=== PATIENT | male | born 1935 | race Caucasian/White ===

== ENCOUNTER 2023-07-25 01:09 | Emergency (ER) | payer OTHER, SELFPAY ==
[2023-07-25 01:13] VITALS: BP 132/101
--- NOTE | 2023-07-25 01:41 | ED.GENMED ---
History of Present Illness
<SHANNAN Pulliam - Last Filed: 07/26/23 17:59>
General
Chief Complaint: Abdominal Pain
Source: patient and spouse
Exam Limitations: none
Time Seen by Provider: 07/25/23 01:22
Travel History
Have you had any contact with someone who has COVID-19?: No
Do you have any symptoms of coronavirus? Fever > 100 degrees, chills, cough, shortness of breath, sore throat, loss of taste or smell, muscle aches, or headache?: No
History of Present Illness
History of Present Illness:
This is a 87 year old male that comes in with c/o constipation. States that he has problems with constipation and then diarrhea. States that he took 3 Imodium and he forced a little stool out today. Then he took 3 Colace today and he still hasn't
gone. States that he has some pain over the incision that was severe. States that he was concerned that he has an obstruction. states that he did not eat much today and he was nauseated and had dry heaves after taking Miralax. States that he is
also not a good water drinker. Denies any fever, chills, chest pain, SOB, diarrhea, vomiting, headache, dizziness, urinary burning.
Past History
<SHANNAN Pulliam - Last Filed: 07/26/23 17:59>
Past History
ED Past Medical History: Arrthythmia (Atrial flutter), HTN, Psychiatric (anxiety) and Other (Sciatic, Constipation, diarrhea syndrome, )
ED Past Surgical History: Bowel resection (Colon resection), Cardiac (Ablation), Orthopedic (Left hip replacement) and Tonsilectomy
Social History
Tobacco: Smoker (Cigar occasionally)
Alcohol: Daily (Wine or Rum and Coke 1 glass)
Drug: None
Personal:
Living: with family
Employment: Retired
Family History
Family History: Other
Review of Systems
<SHANNAN Pulliam - Last Filed: 07/26/23 17:59>
Review of Systems
All Other Systems: ROS reviewed and negative except as documented in HPI and ROS
Constitutional: Reports no symptoms; Denies fever or chills
EENT: Reports no symptoms
Respiratory: Reports no symptoms; Denies cough or trouble breathing
Cardiac: Reports no symptoms; Denies chest pain
ABD/GI: Reports abdominal pain and nausea; Denies vomiting (Dry heaves) or diarrhea
: Reports no symptoms; Denies dysuria, frequency or urgency
Musculoskeletal: Reports no symptoms
Skin: Reports no symptoms
Neurological: Reports no symptoms; Denies dizzy or headache
Psychiatric: Reports no symptoms
Phy Exam
<SHANNAN Pulliam - Last Filed: 07/26/23 17:59>
General Physical Exam
General Presentation: well appearing and no apparent distress
General age: appears stated age
General Skin: warm and dry
General Habitus: elderly
General Mental: alert
General Hydration: dry mucous membranes
ENT Exam
ENT Exam: TM's normal, pharynx normal and neck supple
Eye Exam
Eye Exam: EOMI
Cardiovascular Exam
Cardiovascular Exam: regular rate/rhythm, no edema, no murmur and normal peripheral pulses
Pulmonary Exam
Pulmonary Exam: lungs clear, no respiratory distress, no rales, chest non tender, no crackles, no rhonchi, no wheezing and no cough
Gastrointestinal Exam
Gastrointestinal Exam: normal bowel sounds, non tender, soft, no organomegaly, no pulsatile mass and non distended
Musculoskeletal Exam
Musculoskeletal Exam: full ROM and no edema
Skin Exam
Skin Exam: normal color, warm/dry, no rash and no petechia
Psychiatric Exam
Psychiatric Exam: normal mood/affect
Course
<SHANNAN Pulliam - Last Filed: 07/26/23 17:59>
Orders/Labs/Results
Orders:
Orders
07/25/23 01:39
0.9% Sodium Chloride 1000 ml [Nss] 1,000 ml IV BOLUS
07/25/23 01:46
Iohexol [Omnipaque] See Protocol PO NOW STA
07/25/23 01:47
CT Abd/pel W Iv And Oral Contr Urgent
Comment:
Reason For Exam: Right sided pain
07/25/23 01:48
Complete Blood Count/With Diff Urgent
Comprehensive Metabolic Panel Urgent
Lipase Urgent
07/25/23 02:15
Urinalysis Reflex To Culture Urgent
Date Specimen was Collected: 07/25/23
Time Specimen was Collected: 02:14
Urine Microscopic Reflex Cult Urgent
Urine Culture Urgent
ASIF Source: U
Specimen Description:
Date Specimen was Collected: 07/25/23
Time Specimen was Collected: 02:14
Abnormal Lab Results
07/25/23 07/25/23
01:48 02:15
WBC 12.8 H 10^3/uL
(4.8-10.8)
RBC 4.52 L 10^6/uL
(4.70-6.10)
Hct 38.6 L %
(39.0-52.0)
RDW 14.9 H %
(11.5-14.5)
Absolute Neuts (auto) 8.5 H 10^3/uL
(1.4-6.5)
Absolute Lymphs (auto) 3.6 H 10^3/uL
(1.2-3.4)
Sodium 132 L mmol/L
(135-145)
BUN 27 H mg/dl
(9-20)
Creatinine 1.4 H mg/dL
(0.7-1.3)
Glucose 138 H mg/dl
(70-99)
Urine Ketones Trace A
(Negative)
Ur Occult Blood Reflex 4+ A
(Negative)
Leukocyte Esterase Rfl Trace A
(Negative)
Urine RBC >100 A /HPF
(0-2)
Urine Bacteria (Reflex) Many A
(Negative)
07/25/23 01:48
07/25/23 01:48
Vital Signs
Initial and Last Documented VS:
Initial Vital Signs
Temp Pulse Resp BP Pulse Ox
97.9 F 70 20 132/101 98
07/25/23 01:13 07/25/23 01:13 07/25/23 01:13 07/25/23 01:13 07/25/23 01:13
Last Documented Vital Signs
Temp Pulse Resp BP Pulse Ox
97.9 F 70 20 144/58 97
07/25/23 01:13 07/25/23 01:13 07/25/23 01:13 07/25/23 05:00 07/25/23 05:30
<Axel Romo, DO - Last Filed: 07/25/23 05:36>
Orders/Labs/Results
Orders:
Orders
07/25/23 01:39
0.9% Sodium Chloride 1000 ml [Nss] 1,000 ml IV BOLUS
07/25/23 01:46
Iohexol [Omnipaque] See Protocol PO NOW STA
07/25/23 01:47
CT Abd/pel W Iv And Oral Contr Urgent
Comment:
Reason For Exam: Right sided pain
07/25/23 01:48
Complete Blood Count/With Diff Urgent
Comprehensive Metabolic Panel Urgent
Lipase Urgent
07/25/23 02:15
Urinalysis Reflex To Culture Urgent
Date Specimen was Collected: 07/25/23
Time Specimen was Collected: 02:14
Urine Microscopic Reflex Cult Urgent
Urine Culture Urgent
ASIF Source: U
Specimen Description:
Date Specimen was Collected: 07/25/23
Time Specimen was Collected: 02:14
Abnormal Lab Results
07/25/23 07/25/23
01:48 02:15
WBC 12.8 H 10^3/uL
(4.8-10.8)
RBC 4.52 L 10^6/uL
(4.70-6.10)
Hct 38.6 L %
(39.0-52.0)
RDW 14.9 H %
(11.5-14.5)
Absolute Neuts (auto) 8.5 H 10^3/uL
(1.4-6.5)
Absolute Lymphs (auto) 3.6 H 10^3/uL
(1.2-3.4)
Sodium 132 L mmol/L
(135-145)
BUN 27 H mg/dl
(9-20)
Creatinine 1.4 H mg/dL
(0.7-1.3)
Glucose 138 H mg/dl
(70-99)
Urine Ketones Trace A
(Negative)
Ur Occult Blood Reflex 4+ A
(Negative)
Leukocyte Esterase Rfl Trace A
(Negative)
Urine RBC >100 A /HPF
(0-2)
Urine Bacteria (Reflex) Many A
(Negative)
07/25/23 01:48
07/25/23 01:48
Vital Signs
Initial and Last Documented VS:
Initial Vital Signs
Temp Pulse Resp BP Pulse Ox
97.9 F 70 20 132/101 98
07/25/23 01:13 07/25/23 01:13 07/25/23 01:13 07/25/23 01:13 07/25/23 01:13
Last Documented Vital Signs
Temp Pulse Resp BP Pulse Ox
97.9 F 70 20 144/58 97
07/25/23 01:13 07/25/23 01:13 07/25/23 01:13 07/25/23 05:00 07/25/23 05:30
<SHANNAN Pulliam - Last Filed: 07/26/23 17:59>
MDM/Problems Addressed
Differential Diagnosis Includes:
constipation, Bowel obstruction,
MDM/Problems Addressed:
This is a 87 year old male that comes in with c/o constipation. States that he has taken 3 Imodium. Then today he was only able to move his bowels very little in the morning. Then he took 3 Colace. States that he took Miralax and had some dry
heaves. State that he had pain over his incision site and was concerned for a bowel obstruction. Patient states that he did not eat today and he is not drinking much water.
Will check labs and get CT scan. Will give IV fluids and check urine.
Chronic conditions affecting care:
Constipation/Diarrhea syndrome.
Chronic conditions affecting care: Previous abdomnial surgery
Acute Exacerbation and/or Progression of Chronic Illness: Previous abdomnial surgery
<SHANNAN Pulliam - Last Filed: 07/26/23 17:59>
*Radiology
Radiology exam reviewed: radiology read reviewed (CT- There is mild right hydronephrosis secondray to a 2mm calculus at the right ureterovesical junction. There are right renal cyst with the largest mesurng 10cm. There are severe degenerative
changes in the lumbar spine. )
*Pulse Oximetry
Patient hypoxic: no
*EKG
Interpreted by ED Provider?: NA
Rate: EKG- N/A
*Animal Services Officer Interpretation
Rate: Animal Services Officer- N/A
*Critical Care Note
Total Time (30-74mins, 75-104mins- exclusive of procedures): Not Applicable
ED Attending Note
<SHANNAN Pulliam - Last Filed: 07/26/23 17:59>
-
Portions of this chart may have been created with voice recognition software.� Occasional wrong word or��sound alike� substitutions may have occurred due to the inherent limitations of voice recognition software.
<Axel Romo DO - Last Filed: 07/25/23 05:36>
ED Attending Note
Patient seen and examined by attending physician: Yes
I performed the substantive portion of visit, reviewed & personally made and approve the management plan that is documented in note by myself or BECKY.: Yes
ED Attending Note:
CT ABDOMEN PELVIS WITH CONTRAST
COMPARISON: None
IMPRESSION:
Mild right hydronephrosis due to an obstructing 2 million m stone at the right ureterovesical junction.
Large right renal cysts measuring up to 10.1 cm.
Probable hemangioma right hepatic lobe segment 7 measuring 2.2 cm.
No evidence of diverticulitis or colitis. Appendix not visualized. No pericecal inflammatory process. No bowel obstruction. No free air.
No concerning bone finding.
07/25/2023 0529 AM: Discussed CAT scan findings with patient and . Patient stated that he does have a history of hematuria. For the last 34 years he has had hematuria. He states that this is secondary to radiation he received for colon cancer.
He has no true urinary symptoms at this time. He wishes to be discharged home. He will get a prescription for pain medication. He takes Flomax.
Discharge Plan
Departure
Patient Disposition: Home (Routine Discharge)
Date of Disposition: 07/25/23
Time of Disposition: 05:30
Patient with high blood pressure during this ER visit?: No
Condition: Good
Discharge Problem:
Kidney stone
Instructions: How to Strain Your Urine, Abdominal Pain, BLOOD PRESSURE
Prescriptions:
New
oxycodone-acetaminophen [Percocet] 5-325 mg tablet
1 tab PO Q4HPRN PRN (Reason: pain) Qty: 10 0RF
No Action
tamsulosin 0.4 MG capsule
0.4 mg PO QPM
losartan [Cozaar] 100 MG tablet
100 mg PO DAILY
potassium chloride 20 MEQ tablet extended release
20 meq PO DAILY
mirtazapine 15 MG tablet
15 mg PO HS
apixaban [Eliquis] 5 MG tablet
5 mg PO BID Qty: 30 0RF
diltiazem HCl 120 MG capsule,ext.rel 24h degradable
240 mg PO DAILY Qty: 30 0RF
diazepam 5 MG tablet
5 mg PO DAILYPRN PRN (Reason: anxiety)
Referrals:
Usman Fisher MD [Active] -
Froilan Hamilton MD [Family Provider] -
Activity Restrictions/Additional Instructions:
Continue to take your Flomax (tamsulosin) as directed
It was a pleasure meeting you and taking part in your care. We hope for your continued healing and wellness.
Please read discharge instructions in their entirety. However, they are for general education and may not describe your exact diagnosis at discharge. Information on your ER visit and medical conditions were discussed with you along with appropriate
follow up information...
If indicated, please take your medications as instructed and indicated on discharge paperwork.
Please schedule a follow up appointment as directed. Call to schedule an appointment
Please return to the emergency department with ANY change in, persisting, or worsening of symptoms. If any of your symptoms do not improve, or persist, or become more severe within 6-12 hours, please return to the emergency department for further
care.
Please return to the emergency department if you develop a headache, neck pain/stiffness, fever greater than 100.4F, chest pain, shortness of breath, persistent nausea, vomiting, slurred speech, difficulty walking, numbness/tingling, weakness, signs
of infection or any other symptoms that are worrisome to you.
If you have any questions or concerns please do not hesitate to call the Hospital at or E-mail me directly at [email or web address]
Interventions
Interventions:
*Risk Screen - Suicide Last Done: 07/25/23 01:13
*General Assessment Last Done: 07/25/23 01:13
*Neglect/Abuse Screening Last Done: 07/25/23 01:13
ED- Fall Risk Assessment Last Done: 07/25/23 01:13
*ED COVID-19 Vaccine History Last Done: 07/25/23 01:13
*Nursing Disposition Last Done: 07/25/23 06:02
CZ-Mwnulg-Pxqyyktmze Assessment Last Done: 07/25/23 02:32
Discharge Date and Time
Discharge Date/Time: 07/25/23 05:55
Print Language: KAZAKH
[2023-07-25 01:43] VITALS: BMI 23.8
[2023-07-25 01:57] LABS: % Basophils 0.2 % (0-2); % Eosinophils 0.2 % (0-6); % Immature Granulocytes 0.3 % (0-0.5); % Lymphocytes 28.3 % (20.5-51.1); % Monocytes 4.2 % (1.7-9.3); % Neutrophils 66.8 % (42.2-75.2); Absolute Lymphocytes 3.6 10^3/uL (1.2-3.4); Absolute Monocytes 0.5 10^3/uL (0.1-0.6); Absolute Neutrophils 8.5 10^3/uL (1.4-6.5); Hematocrit 38.6 % (39.0-52.0); Hemoglobin 13.9 g/dL (13.0-18.0); Mean Corpuscular Hgb 30.8 pg (27.0-31.0); Mean Corpuscular Volume 85.4 fL (80.0-94.0); Mean Platelet Volume 8.9 fL (7.4-10.4); Nucleated Red Blood Cells % 0 % (-); Platelet Count 193 10^3/uL (130-400); Red Blood Cell Count 4.52 10^6/uL (4.70-6.10); Red Cell Dist. Width 14.9 % (11.5-14.5); White Blood Cell Count 12.8 10^3/uL (4.8-10.8)
[2023-07-25] MEDS: OMNIPAQUE 50 ML PO (02:15)
[2023-07-25] MEDS: NSS 1000 IV (02:15)
[2023-07-25 02:20] VITALS: BP 154/64
[2023-07-25 02:22] LABS: ALT (SGPT) 19 U/L (0-50); AST (SGOT) 26 U/L (17-59); Albumin 4.3 g/dl (3.5-5.0); Alkaline Phosphatase 94 U/L (38-126); Blood Urea Nitrogen 27 mg/dl (9-20); Calcium 9.8 mg/dl (8.4-10.2); Carbon Dioxide 23 mmol/L (22-30); Chloride 103 mmol/L (98-107); Estimated Creatinine Clearance 36 ml/min; Glucose 138 mg/dl (70-99); Lipase 40 U/L (23-300); Potassium 4.4 mmol/L (3.5-5.1); Sodium 132 mmol/L (135-145); Total Bilirubin 0.9 mg/dl (0.2-1.3); Total Protein 7.6 g/dl (6.3-8.2); eGFR 48.65
[2023-07-25 03:00] VITALS: BP 161/61
[2023-07-25 03:25] LABS: Urine Albumin Trace (Neg - Trace); Urine Bilirubin Negative (Negative); Urine Character Slightly Cloudy (Clear); Urine Color Amber; Urine Glucose Negative (Negative); Urine Ketone Trace (Negative); Urine Leukocyte Trace (Negative); Urine Nitrite Negative (Negative); Urine Occult Blood 4+ (Negative); Urine Urobilinogen Negative (Neg - 1+)
[2023-07-25 03:47] LABS: Urine Amorphous Seen; Urine Bacteria Many (Negative); Urine Red Blood Cell >100 /HPF (0-2); Urine Squamous Cell >30 /LPF (Few)
[2023-07-25 03:49] LABS: Urine Mucus Many
[2023-07-25 04:03] VITALS: BP 166/75
[2023-07-25 05:00] VITALS: BP 144/58
== END 2023-07-25 05:55 | disposition home or self-care (01) ==
LOC: EMR 01:09
PROVIDERS: Clinical Nurse Specialist Family Health; EMERGENCY PHYSICIAN Student in an Organized Health Care Education/Training Program; FAMILY PHYSICIAN Internal Medicine Geriatric Medicine
DX: K59.00 Constipation, unspecified (principal); N13.2 Hydronephrosis with renal and ureteral calculous obstruction; R31.9 Hematuria, unspecified; M47.816 Spondylosis without myelopathy or radiculopathy, lumbar region; N28.1 Cyst of kidney, acquired; I10 Essential (primary) hypertension; I48.92 Unspecified atrial flutter; F41.9 Anxiety disorder, unspecified; F17.290 Nicotine dependence, other tobacco product, uncomplicated; Z96.642 Presence of left artificial hip joint; Z98.0 Intestinal bypass and anastomosis status; Z85.038 Personal history of other malignant neoplasm of large intestine; Z92.3 Personal history of irradiation; Z79.01 Long term (current) use of anticoagulants
CPT/HCPCS: 99285; 96360; 74177; 80053; 81003; 81015; 83690; 85025; 87086; Q9967

== ENCOUNTER 2024-02-13 03:20 | Emergency (ER) | payer OTHER, SELFPAY ==
[2024-02-13 03:21] VITALS: BP 160/80
--- NOTE | 2024-02-13 03:38 | ED.GENMED ---
History of Present Illness
<Stephanie Cade PA-C - Last Filed: 02/13/24 05:14>
General
Chief Complaint: Fever
Source: patient
Exam Limitations: none
Time Seen by Provider: 02/13/24 03:37
Nursing documentation reviewed up to this point in time: agreed with
History of Present Illness
History of Present Illness:
88-year-old male with past medical history of A-fib on diltiazem and Eliquis, hypertension presents to the Emergency Department today with concerns of on and off fevers and chills, as well as body aches for the past 2 weeks. Patient reports that
this all started 2 weeks ago after getting his COVID and flu shots. Patient states that he was checking his temperature because he got shaking chills and noticed that it was 99. Patient then took Tylenol which relieved his symptoms. Patient then
got chills again started taking his temperature daily due to to his present course of illness. Patient close primary care provider and was told to take Tylenol and stay well-hydrated. Patient states that he inserted feel congestion and having on
and off cough. Patient states that when he went to sleep last night, he woke up in the middle and noted a fever 101. Patient did take Tylenol prior to arrival to emergency department and notes that his fever resolved and he now feels better. He
denies chest pain, shortness of breath, hemoptysis, abdominal pain, nausea, vomiting, burning with urination. Denies any diarrhea or constipation.
Past History
<Stephanie Cade PA-C - Last Filed: 02/13/24 05:14>
Past History
ED Past Medical History: Arrthythmia (Atrial flutter), HTN, Psychiatric (anxiety) and Other (Sciatic, Constipation, diarrhea syndrome, )
ED Past Surgical History: Bowel resection (Colon resection), Cardiac (Ablation), Orthopedic (Left hip replacement) and Tonsilectomy
Social History
Tobacco: Smoker (Cigar occasionally)
Alcohol: Daily (Wine or Rum and Coke 1 glass)
Drug: None
Personal:
Living: with family
Employment: Retired
Family History
Family History: Other
Review of Systems
<Stephanie Cade PA-C - Last Filed: 02/13/24 05:14>
Review of Systems
All Other Systems: ROS reviewed and negative except as documented in HPI and ROS
Phy Exam
<Stephanie Cade PA-C - Last Filed: 02/13/24 05:14>
Physical Exam
Physical Exam:
General: Patient is well appearing and in no acute distress; non-toxic
Skin: Warm and dry, no rashes or lesions
Head: Normocephalic, atraumatic. No tenderness to palpation of the sinuses.
Eyes: Sclera non-icteric. EOMs intact. PERRLA.
Throat: No pharyngeal erythema, uvula midline, no post nasal drip.
Cardiac: Regular rate and rhythm, no murmurs
Pulm: Normal respiratory effort, no wheezes, rales, or rhonchi
Neuro: CN II-XII intact, no focal neurologic deficits.
Psychiatric: Appropriate mood and affect.
Course
<Stephanie Cade PA-C - Last Filed: 02/13/24 05:14>
Orders/Labs/Results
Orders:
Orders
02/13/24 04:02
COVID-19 Antigen Urgent
Source: Nasal Swab
Influenza A+B Rapid Molecular Urgent
ASIF Source: Nasal Swab
Specimen Description:
02/13/24 04:16
Complete Blood Count/With Diff Urgent
Comprehensive Metabolic Panel Urgent
Abnormal Lab Results
02/13/24
04:16
WBC 11.4 H 10^3/uL
(4.8-10.8)
RBC 4.21 L 10^6/uL
(4.70-6.10)
Hgb 12.6 L g/dL
(13.0-18.0)
Hct 36.0 L %
(39.0-52.0)
RDW 15.0 H %
(11.5-14.5)
Absolute Neuts (auto) 9.0 H 10^3/uL
(1.4-6.5)
Neutrophils % 78.8 H %
(42.2-75.2)
Lymphocytes % 17.3 L %
(20.5-51.1)
Glucose 128 H mg/dl
(70-99)
ALT 56 H U/L
(0-50)
02/13/24 04:16
02/13/24 04:16
Vital Signs
Initial and Last Documented VS:
Initial Vital Signs
Temp Pulse Resp BP Pulse Ox
99.5 F 86 16 160/80 98
02/13/24 03:21 02/13/24 03:21 02/13/24 03:21 02/13/24 03:21 02/13/24 03:21
Last Documented Vital Signs
Temp Pulse Resp BP Pulse Ox
99.5 F 86 16 123/72 92
02/13/24 03:21 02/13/24 03:21 02/13/24 03:21 02/13/24 05:00 02/13/24 05:00
<Axel Romo, DO - Last Filed: 02/13/24 06:01>
Orders/Labs/Results
Orders:
Orders
02/13/24 04:02
COVID-19 Antigen Urgent
Source: Nasal Swab
Influenza A+B Rapid Molecular Urgent
ASIF Source: Nasal Swab
Specimen Description:
02/13/24 04:16
Complete Blood Count/With Diff Urgent
Comprehensive Metabolic Panel Urgent
Abnormal Lab Results
02/13/24
04:16
WBC 11.4 H 10^3/uL
(4.8-10.8)
RBC 4.21 L 10^6/uL
(4.70-6.10)
Hgb 12.6 L g/dL
(13.0-18.0)
Hct 36.0 L %
(39.0-52.0)
RDW 15.0 H %
(11.5-14.5)
Absolute Neuts (auto) 9.0 H 10^3/uL
(1.4-6.5)
Neutrophils % 78.8 H %
(42.2-75.2)
Lymphocytes % 17.3 L %
(20.5-51.1)
Glucose 128 H mg/dl
(70-99)
ALT 56 H U/L
(0-50)
02/13/24 04:16
02/13/24 04:16
Vital Signs
Initial and Last Documented VS:
Initial Vital Signs
Temp Pulse Resp BP Pulse Ox
99.5 F 86 16 160/80 98
02/13/24 03:21 02/13/24 03:21 02/13/24 03:21 02/13/24 03:21 02/13/24 03:21
Last Documented Vital Signs
Temp Pulse Resp BP Pulse Ox
99.5 F 86 16 123/72 92
02/13/24 03:21 02/13/24 03:21 02/13/24 03:21 02/13/24 05:00 02/13/24 05:00
Luzmarialt;Stephanie Cade PA-C - Last Filed: 02/13/24 05:14>
MDM/Problems Addressed
Differential Diagnosis Includes:
ddx include influenza, COVID-19, sinusitis, bronchitis, viral syndrome
MDM/Problems Addressed:
88-year-old male with past medical history of A-fib on diltiazem and Eliquis, hypertension presents to the Emergency Department today with concerns of on and off fevers and chills, as well as body aches for the past 2 weeks. Patient reports that
this all started 2 weeks ago after getting his COVID and flu shots. Patient states that he was checking his temperature because he got shaking chills and noticed that it was 99. Patient then took Tylenol which relieved his symptoms.
On physical exam, he is well appearing, afebrile, in no acute distress. His lungs are clear to auscultation bilaterally. His CBC and CMP are unremarkable, he tested negative for COVID and flu. Suspect likely sinusitis versus upper respiratory
viral syndrome. Return precautions discussed with patient. Patient has a follow-up with a primary care provider scheduled. No concern for pneumonia or sepsis at this time. Patient stable for discharge.
Chronic conditions affecting care:
hypertension, aflutter
Acute Exacerbation and/or Progression of Chronic Illness:
htn--patient hypertensive upon arrival to emergency department, his blood pressure normalized without intervention
<Stephanie Cade PA-C - Last Filed: 02/13/24 05:14>
*Pulse Oximetry
Patient hypoxic: no
*Critical Care Note
Total Time (30-74mins, 75-104mins- exclusive of procedures): Not Applicable
Data Reviewed
Review of Other/Old Records Reveals: Records (Reviewed previous ER physician documentation from 07/25/2023 patient was seen for a kidney stone, reviewed discharge summary from 2019 where patient was seen for atrial flutter and he had an ablation done)
Source: patient and records
Prescriptions/Medications Considered But Not Given:
n/a
Further Testing Considered But Not Given:
considered cxr however patient is afebrile, not hypoxic, his lungs are clear
<Stephanie Cade PA-C - Last Filed: 02/13/24 05:14>
Patient Management
Escalation/DeEscalation of care consider admission/obs:
Admit not indicated
ED Attending Note
<Stephanie Cade PA-C - Last Filed: 02/13/24 05:14>
-
Portions of this chart may have been created with voice recognition software.� Occasional wrong word or��sound alike� substitutions may have occurred due to the inherent limitations of voice recognition software.
<Axel Romo DO - Last Filed: 02/13/24 06:01>
ED Attending Note
Patient seen and examined by attending physician: Yes
I performed the substantive portion of visit, reviewed & personally made and approve the management plan that is documented in note by myself or BECKY.: Yes
ED Attending Note:
Fevers for the last 2 weeks. Patient and state that had similar symptoms. They report that they got the COVID and flu vaccines 2 weeks ago. Patient reports that his fevers were below 100 �F. Tonight the fever was 101 so he came into the
emergency department. He did take Tylenol which helped with some of his symptoms. Denies any other specific complaints other than congestion. Patient was seen in conjunction with the BECKY I reviewed and agree with her history and treatment plan.
On my independent physical exam heart is regular rate rhythm. Lungs are clear to auscultation bilaterally no wheezes rales or rhonchi present abdomen soft and nontender. Diagnosis viral syndrome.
Discharge Plan
Departure
Patient Disposition: Home (Routine Discharge)
Date of Disposition: 02/13/24
Time of Disposition: 05:11
Patient with high blood pressure during this ER visit?: Yes
Condition: Good
Discharge Problem:
Low grade fever, Acute viral syndrome
Instructions: Fever, Adult (DC), Viral Syndrome (DC), BLOOD PRESSURE
Prescriptions:
No Action
tamsulosin 0.4 MG capsule
0.4 mg PO QPM
losartan [Cozaar] 100 MG tablet
100 mg PO DAILY
potassium chloride 20 MEQ tablet extended release
20 meq PO DAILY
mirtazapine 15 MG tablet
15 mg PO HS
apixaban [Eliquis] 5 MG tablet
5 mg PO BID Qty: 30 0RF
diltiazem HCl 120 MG capsule,ext.rel 24h degradable
240 mg PO DAILY Qty: 30 0RF
diazepam 5 MG tablet
5 mg PO DAILYPRN PRN (Reason: anxiety)
oxycodone-acetaminophen [Percocet] 5-325 mg tablet
1 tab PO Q4HPRN PRN (Reason: pain) Qty: 10 0RF
Referrals:
Froilan Hamilton MD [Family Provider] -
Activity Restrictions/Additional Instructions:
Please return emergency department if you experience chest pain, shortness of breath, trouble swallowing, throat swelling, coughing up blood, syncopal episodes, dizziness, lightheadedness, or any other signs or symptoms concerning to you.
Please follow-up with your primary care provider.
Interventions
Interventions:
*Risk Screen - Suicide Last Done: 02/13/24 03:21
*General Assessment Last Done: 02/13/24 03:21
*Neglect/Abuse Screening Last Done: 02/13/24 03:21
ED- Fall Risk Assessment Last Done: 02/13/24 05:14
*ED COVID-19 Vaccine History Last Done: 02/13/24 03:38
*Nursing Disposition Last Done: 02/13/24 05:18
ED- Neurological Assessment Last Done: 02/13/24 04:00
ED-Skin Assessment Last Done: 02/13/24 04:00
Discharge Date and Time
Discharge Date/Time: 02/13/24 05:21
Print Language: GAMBIAN
[2024-02-13 04:00] VITALS: BMI 25.7
[2024-02-13 04:16] VITALS: BP 118/57
[2024-02-13 04:25] LABS: % Basophils 0.3 % (0-2); % Immature Granulocytes 0.3 % (0-0.5); % Lymphocytes 17.3 % (20.5-51.1); % Monocytes 3.3 % (1.7-9.3); % Neutrophils 78.8 % (42.2-75.2); Absolute Monocytes 0.4 10^3/uL (0.1-0.6); Hemoglobin 12.6 g/dL (13.0-18.0); Mean Corpuscular Hgb 29.9 pg (27.0-31.0); Mean Corpuscular Volume 85.5 fL (80.0-94.0); Mean Platelet Volume 8.3 fL (7.4-10.4); Nucleated Red Blood Cells % 0 % (-); Platelet Count 138 10^3/uL (130-400); Red Blood Cell Count 4.21 10^6/uL (4.70-6.10); White Blood Cell Count 11.4 10^3/uL (4.8-10.8)
[2024-02-13 04:50] LABS: ALT (SGPT) 56 U/L (0-50); AST (SGOT) 47 U/L (17-59); Albumin 4.1 g/dl (3.5-5.0); Alkaline Phosphatase 87 U/L (38-126); Blood Urea Nitrogen 19 mg/dl (9-20); Calcium 9.2 mg/dl (8.4-10.2); Carbon Dioxide 25 mmol/L (22-30); Chloride 103 mmol/L (98-107); Estimated Creatinine Clearance 49 ml/min; Glucose 128 mg/dl (70-99); Potassium 4.1 mmol/L (3.5-5.1); Sodium 139 mmol/L (135-145); Total Bilirubin 1.3 mg/dl (0.2-1.3); Total Protein 7.4 g/dl (6.3-8.2); eGFR > 60.00
[2024-02-13 04:52] LABS: COVID-19 Antigen Negative (Negative)
[2024-02-13 05:00] VITALS: BP 123/72
== END 2024-02-13 05:21 | disposition home or self-care (01) ==
LOC: EMR 03:20
PROVIDERS: Physician Assistant; EMERGENCY PHYSICIAN Student in an Organized Health Care Education/Training Program; FAMILY PHYSICIAN Internal Medicine Geriatric Medicine
DX: B34.9 Viral infection, unspecified (principal); R50.9 Fever, unspecified; R05.9 Cough, unspecified; Z11.52 Encounter for screening for COVID-19; I48.91 Unspecified atrial fibrillation; I10 Essential (primary) hypertension; I48.92 Unspecified atrial flutter; M19.90 Unspecified osteoarthritis, unspecified site; F41.9 Anxiety disorder, unspecified; F17.290 Nicotine dependence, other tobacco product, uncomplicated; Z85.038 Personal history of other malignant neoplasm of large intestine; Z96.642 Presence of left artificial hip joint; Z98.0 Intestinal bypass and anastomosis status; Z79.01 Long term (current) use of anticoagulants; Z79.899 Other long term (current) drug therapy
CPT/HCPCS: 99283; 80053; 85025; 87502; 87811